=== PATIENT | female | born 1945 | race Caucasian/White ===

== ENCOUNTER 2016-09-25 03:36 | Emergency (ER) | payer MEDICARE, OTHER ==
[~2016-09-25 03:36] MED LIST: BACLOFEN10 MG PO; FLAGYL PO; FLEXERIL10 M1 PO; HYDROCODON-ACE1 EAC9 PO; KLONOPIN PO; LEXAPRO PO; LEXAPRO20 MG PO; LIDODERM30 EA TOP; LISINOPRIL PO; LISINOPRIL-HCTZ1 T19 PO; LORAZEPAM1 MG PO; PREDNISONE10 MG/DOSE PO; ROBAXIN PO; TRAMADOL HCL50 M1 PO; VOLTAREN50 MG PO
[2016-09-25] MEDS ORDERED: KLONOPIN1 MG PO (03:47)
[2016-09-25] MEDS ORDERED: NORCO 7.5-3251 EACH PO (03:48)
[2016-09-25] MEDS ORDERED: DULOXETINE HCL60 MG PO (03:48)
[2016-09-25] MEDS ORDERED: FLEXERIL10 MG PO (03:49)
[2016-09-25] MEDS ORDERED: LOPID600 MG (03:49)
[2016-09-25] MEDS ORDERED: ZESTORETIC 10-1 EAC1 PO (03:49)
== END 2016-09-25 04:20 | disposition home or self-care (01) ==
LOC: SED 03:36
DX: M79.89 Other specified soft tissue disorders (principal); F41.9 Anxiety disorder, unspecified; F03.90 Unspecified dementia, unspecified severity, without behavioral disturbance, psychotic disturbance, mood disturbance, and anxiety; J44.9 Chronic obstructive pulmonary disease, unspecified; F17.210 Nicotine dependence, cigarettes, uncomplicated; Z79.899 Other long term (current) drug therapy; Z88.0 Allergy status to penicillin; Z88.2 Allergy status to sulfonamides; Z88.1 Allergy status to other antibiotic agents
CPT/HCPCS: 99282

== ENCOUNTER 2016-10-31 02:11 | Emergency (ER) | payer MEDICARE, OTHER ==
[~2016-10-31 02:11] MED LIST changes: +DULOXETINE HCL60 MG PO; +FLEXERIL10 MG PO; +KLONOPIN1 MG PO; +LOPID600 MG; +NORCO 7.5-3251 EACH PO; +ZESTORETIC 10-1 EAC1 PO
[2016-10-31 02:52] LABS: URINE SOURCE CLEAN CATCH
[2016-10-31 02:54] LABS: URINE APPEARANCE CLEAR; URINE BILIRUBIN NEG (NEG); URINE BLOOD NEG (NEG); URINE COLOR YELLOW; URINE GLUCOSE NEG (NORM); URINE KETONE NEG (NEG); URINE LEUKOCYTE ESTERASE 2+ (NEG); URINE NITRATE NEG (NEG); URINE PROTEIN NEG (NEG); URINE SPECIFIC GRAVITY 1.025 (1.003-1.035); URINE UROBILINOGEN 0.2 MG/DL (NORM)
[2016-10-31 03:00] LABS: BASOPHIL% 0.1 % (0-2.5); EOSINOPHIL# 0.1 X10e3 (0-0.7); HEMATOCRIT 42.3 % (35.0-45.0); HEMOGLOBIN 13.7 gm/dL (12.0-16.0); LYMPHOCYTE# 4.2 X10e3 (1.0-3.5); LYMPHOCYTE% 33.9 % (17.0-45.0); MEAN CELL VOLUME 91.1 FL (83-96); MEAN CORPUSCULAR HEMOGLOBIN 29.5 PG (28-34); MEAN CORPUSCULAR HGB CONC 32.4 g/dL (30-36); MEAN PLATELET VOLUME 9.3 FL (6.5-11.5); MONOCYTE# 0.9 X10e3 (0-1.0); MONOCYTE% 6.9 % (3.0-12.0); NEUTROPHIL# 7.2 X10e3 (1.5-7.1); NEUTROPHIL% 58.1 % (40-75); PLATELET COUNT 349 X10e3 (140-420); RED BLOOD COUNT 4.65 X10e (3.90-5.30); RED CELL DISTRIBUTION WIDTH 13.7 % (11.0-15.5); WHITE BLOOD COUNT 12.5 X10e3 (4.0-10.5)
[2016-10-31 03:01] LABS: DIFF IND NO
[2016-10-31 03:03] LABS: MICRO INDICATED? YES
[2016-10-31 03:05] LABS: CULTURE INDICATED? YES; URINE BACTERIA 1+ (NEG); URINE WBC 50-100 /[HPF] (0-5)
[2016-10-31 03:06] LABS: URINE MUCUS PRESENT; URINE SQUAMOUS EPITHELIAL CELL MODERATE /[HPF]; URINE TRANSITIONAL EPI CELLS OCCAS /[HPF]
[2016-10-31 03:07] LABS: INR 1.1; PROTHROMBIN TIME (PATIENT) 12.1 SECONDS (9.5-12.4)
[2016-10-31 03:14] LABS: BUN/CREATININE RATIO 19.09; CALCIUM SERUM 9.4 mg/dL (8.4-10.2); CREATININE SERUM 1.1 mg/dL (0.6-1.4); GLOM FILT RATE Estimated 50.8 mL/min (>60); PARTIAL THROMBOPLASTIN TIME 29.7 SECONDS (25.6-38.1)
== END 2016-10-31 04:11 | disposition home or self-care (01) ==
LOC: SED 02:11
PROVIDERS: Emergency Medicine
DX: N39.0 Urinary tract infection, site not specified (principal); J44.9 Chronic obstructive pulmonary disease, unspecified; F17.200 Nicotine dependence, unspecified, uncomplicated; E78.5 Hyperlipidemia, unspecified
CPT/HCPCS: 80048; 81003; 85025; 85610; 85730; 87086; 87210; 87905; 99283